=== PATIENT | male | born 1990 | race African-American/Black ===

== ENCOUNTER 2018-03-28 18:20 | Emergency (ER) | payer OTHER ==
[~2018-03-28] VITALS: Ht 167.6 cm; Wt 49.9 kg
[2018-03-28 20:13] LABS: HEMATOCRIT 38.5 % (42.0-52.0); HEMOGLOBIN 13.4 gm/dL (14.0-18.0)
[2018-03-28] MEDS ORDERED: NORCO 5-325 TA1 EACH PO (21:37)
[2018-03-28] MEDS ORDERED: IBUPROFEN 600600 M1 PO (21:37)
[2018-03-28 22:42] VITALS: BP 144/91
== END 2018-03-28 22:43 | disposition home or self-care (01) ==
LOC: ER 18:20
PROVIDERS: Nurse Practitioner
DX: S82.041A Displaced comminuted fracture of right patella, initial encounter for closed fracture (principal); J45.909 Unspecified asthma, uncomplicated; F17.210 Nicotine dependence, cigarettes, uncomplicated; W01.0XXA Fall on same level from slipping, tripping and stumbling without subsequent striking against object, initial encounter; Y93.89 Activity, other specified; Y92.89 Other specified places as the place of occurrence of the external cause; Y99.8 Other external cause status